=== PATIENT | male | born 1945 | race Two or more races ===

== ENCOUNTER 2023-04-12 10:23 | Emergency (ER) | payer OTHER ==
[~2023-04-12] VITALS: Ht 175.3 cm; Wt 74.8 kg
[2023-04-12] MEDS ORDERED: ZETIA10 MG (11:22)
[2023-04-12] MEDS ORDERED: PLAVIX75 MG (11:23)
[2023-04-12] MEDS ORDERED: LIPITOR20 MG PO (11:23)
[2023-04-12] MEDS ORDERED: URSODIOL PO (11:24)
[2023-04-12 14:28] LABS: PH,URINE 5.5 (5.0-8.0); URINE APPEARANCE Clear; URINE BILIRRUBIN Negative (NEGATIVE); URINE BLOOD Negative; URINE COLOR Yellow; URINE GLUCOSE Negative (NEGATIVE); URINE LEUKOCYTE Negative; URINE NITRATE Negative; URINE PROTEIN Trace (NEGATIVE); URINE UROBILINOGEN 0.2 E.U./dl
[2023-04-12 14:28] LABS: HEMATOCRIT 42.9 % (39.0-48.0); HEMOGLOBIN 14.8 g/dL (13-16.00); MEAN CELL VOLUME 93.2 fL (80.0-100.00); MEAN CORPUSCULAR HEMOGLOBIN 32.1 pg (27.00-32.0); MEAN CORPUSCULAR HGB CONC 34.5 g/dl (32.0-36.0); PLATELET COUNT 224 K/uL (150-450); RED CELL DISTRIBUTION WIDTH 14.3 % (11.5-14.5)
[2023-04-12 14:29] LABS: URINE EPITHELIAL CELLS 4.9 uL (0.0-38.8); URINE RBC 6.4 uL (0.0-20.8); URINE WBC 1.8 uL (0.0-23.2)
[2023-04-12 16:52] LABS: ALBUMIN 3.4 gm/dL (3.4-5.0); BILIRUBIN TOTAL 0.87 mg/dL (0.3-1.2); BILIRUBIN,CONJUGATED 0.27 mg/dL (0.0-0.2); BILIRUBIN,UNCONJUGATED 0.6 mg/dL (0.0-0.6); TOTAL PROTEIN 8.2 gm/dL (6.4-8.2)
== END 2023-04-12 19:01 | disposition home or self-care (01) ==
LOC: ER 10:24 → EDBD 13:02 → ER 13:02
PROVIDERS: General Practice
DX: J00 Acute nasopharyngitis [common cold] (principal); N39.0 Urinary tract infection, site not specified; Z85.89 Personal history of malignant neoplasm of other organs and systems; Z86.73 Personal history of transient ischemic attack (TIA), and cerebral infarction without residual deficits; Z20.822 Contact with and (suspected) exposure to COVID-19